=== PATIENT | male | born 1995 | race Caucasian/White ===

== ENCOUNTER → 2020-01-25 | Outpatient (CLI) | payer OTHER ==
[~2020-01-25] MED LIST: PROHANCE 279.3MG/ML 15ML VIAL As Ordered ONE
--- NOTE | 2020-03-21 10:00 | REP ---
MRA OF THE CHEST AND THORACIC AORTA: HISTORY: Left facial and body numbness. Blurred left vision. Left-sided chest pain. TECHNIQUE: MRA of the chest is performed following the intravenous administration of 25 ml ProHance. 3D MIP reconstruction images are performed. FINDINGS: The thoracic aorta is normal in caliber with no evidence of aneurysm or dissection. The brachiocephalic artery is normal in caliber. The proximal right subclavian artery is normal in caliber. The right common carotid artery is normal in caliber. The right vertebral artery is patent and originates from the proximal right subclavian artery. The left common carotid artery is patent. The left subclavian artery is patent. The left vertebral artery originates from the left subclavian artery. IMPRESSION: Negative MRA thoracic aorta. MTDD
== END ==
LOC: M RAD 08:15
PROVIDERS: ATTEND Internal Medicine Cardiovascular Disease
DX: R07.89 Other chest pain (principal); R20.2 Paresthesia of skin; H53.8 Other visual disturbances
CPT/HCPCS: A9576; C8911

== ENCOUNTER → 2021-03-24 | Outpatient (CLI) | payer OTHER ==
--- NOTE | 2021-03-27 16:30 | SLEEPHOME ---
DATE: 03/24/2021 ORDERED BY: DIETER [facility] home sleep testing was performed due to concern for the obstructive sleep apnea syndrome. For testing, a nocturnal T3 respiratory monitoring device was used. Continuous record was made of pulse, oxygen saturation, air flow, chest and abdominal strain, and body position. Eleven hours and 59 minutes of data were reviewed. There were 10 hours and 5 minutes marked as time in bed. During the interval marked time in bed, there were 52 respiratory events identified of 10 seconds in duration or greater for a respiratory event index of 5.2. The events were primarily obstructive and associated with the supine posture. Baseline pulse rate was 72. Pulse rate ranged 31 to 104. Baseline saturation was 93%. Saturations fell to 89% and testing was performed in both the supine and nonsupine positions. IMPRESSION: Abnormal home sleep testing with repetitive respiratory events and oxygen desaturations to 89% with a respiratory event index of 5.2 is consistent with the obstructive sleep apnea syndrome. RECOMMENDATION: Sleep position re-training for avoidance of the supine posture may be sufficient. Should the patient continue to experience sleep symptoms, referral for a formal sleep evaluation would be recommended.
== END ==
LOC: M SLEEP HO 10:35
PROVIDERS: ATTEND Physician Assistant
DX: G47.9 Sleep disorder, unspecified (principal)